=== PATIENT | male | born 1970 | race Hispanic/Latino ===

== ENCOUNTER 2019-12-08 10:20 | Emergency (ER) | payer SELFPAY | END 2019-12-08 11:26 | disposition home or self-care (01) | LOC: EDH 10:20 | DX: Z48.817 Encounter for surgical aftercare following surgery on the skin and subcutaneous tissue (principal); E11.9 Type 2 diabetes mellitus without complications; I10 Essential (primary) hypertension; Z87.891 Personal history of nicotine dependence; Z98.890 Other specified postprocedural states | CPT/HCPCS: 99281 ==

== ENCOUNTER 2020-06-20 19:22 | Inpatient (IN) | payer OTHER ==
[~2020-06-20] VITALS: Ht 172.7 cm; Wt 90.0 kg
[2020-06-20] MEDS: INSULIN HUMULIN R 100 UNIT/ML 3ML SQ SCH
[2020-06-20] MEDS ORDERED: ONDANSETRON HCL 4 MG/2 ML VIAL ONE (20:26)
[2020-06-20] MEDS ORDERED: ASPIRIN 325 MG TABLET ONE (20:26)
[2020-06-20 20:27] LABS: BASOPHILS % (AUTO) 0.3 % (0.0-5.0); EOSINOPHILS % (AUTO) 0.3 % (0.0-8.0); HEMATOCRIT 35.1 % (42-54); LYMPHOCYTES % (AUTO) 22.8 % (21.0-51.0); MEAN CORPUSCULAR HEMOGLOBIN 28.2 pg (27.0-33.0); MEAN CORPUSCULAR HGB CONC 33.6 g/dL (32.0-36.0); MEAN CORPUSCULAR VOLUME 83.8 fL (79-99); MONOCYTES % (AUTO) 8.6 % (3.0-13.0); NEUTROPHILS % (AUTO) 67.7 % (40.0-77.0); PLATELET COUNT (AUTO) 246 K/uL (130-400); RED BLOOD CELL COUNT(AUTO) 4.19 MIL/uL (4.50-6.20); RED CELL DISTRIBUTION WIDTH 13.6 % (11.0-15.5); WHITE BLOOD COUNT (AUTO) 11.6 K/uL (4.8-10.8)
[2020-06-20 20:37] LABS: INR 1.02 (0.85-1.15); PROTHROMBIN TIME 10.9 SEC (9.6-11.6)
[2020-06-20 20:38] LABS: PARTIAL THROMBOPLASTIN TIME 26.7 SEC (26.3-35.5)
[2020-06-20 20:55] LABS: B-TYPE NATRIURETIC PEPTIDE 44 pg/mL (0-100); POTASSIUM 3.6 mmol/L (3.5-5.1)
[2020-06-20 20:59] LABS: ALBUMIN 3.2 g/dL (3.5-5.0); BILIRUBIN,TOTAL 0.4 mg/dL (0.2-1.0); TOTAL PROTEIN, SERUM 7.9 g/dL (6.0-8.3)
[2020-06-20 21:09] LABS: APPEARANCE,URINE Clear (CLEAR); BILIRUBIN,URINE Negative (NEGATIVE); COLOR,URINE Dark Yellow (YELLOW); GLUCOSE, URINE (UA) 250 mg/dL (NEGATIVE); KETONES,URINE 15 mg/dL (NEGATIVE); LEUKOCYTE ESTERASE ,URINE Trace (NEGATIVE); NITRATE,URINE Negative (NEGATIVE); OCCULT BLOOD,URINE Negative (NEGATIVE); PROTEIN,URINE POS 2+ mg/dL (NEGATIVE)
[2020-06-20 21:19] LABS: BACTERIA,URINE Rare /HPF (None Seen); HYALINE CASTS, URINE 0-1 /LPF (0-1 /LPF); RBC,URINE 0-1 /HPF (0-1); SQUAMOUS EPITHELIAL CELL,UR Rare /HPF (0-2); WBC,URINE 0-1 /HPF (0-1)
[2020-06-20] MEDS ORDERED: GLUCAGON 1MG KIT 1 MG ML IM PRN (21:45)
[2020-06-20] MEDS ORDERED: DEXTROSE 50%-WATER 50 ML DISP.SYRIN IV PRN (21:45)
[2020-06-20 22:18] LABS: HEMOGLOBIN A1C 8.7 % (4.0-6.0)
[2020-06-20] MEDS ORDERED: NITROGLYCERIN 0.4 MG SL TAB SL PRN (22:45)
[2020-06-20] MEDS ORDERED: ACETAMINOPHEN 325 MG TAB PO PRN ×2 (22:45)
[2020-06-20] MEDS: SODIUM CHLORIDE 0.9% 1000ML 1,000 ML IV SCH (22:45)
[2020-06-20] MEDS ORDERED: ONDANSETRON HCL 4 MG/2 ML VIAL IV PRN (22:45)
[2020-06-20] MEDS ORDERED: SODIUM CHLORIDE 0.9% 1000ML 1,000 ML IV ONE (22:45)
[2020-06-20] MEDS ORDERED: DIPHENHYDRAMINE HCL 25 MG CAPSULE PO PRN (22:45)
[2020-06-20 23:05] LABS: AMPHET/METH SCREEN,URINE NEGATIVE (NEGATIVE); BARBITURATE SCREEN, URINE NEGATIVE (NEGATIVE); BENZODIAZEPINES SCREEN,URINE NEGATIVE (NEGATIVE); CANNABINOID SCREEN,URINE NEGATIVE (NEGATIVE); COCAINE SCREEN,URINE NEGATIVE (NEGATIVE); OPIATE SCREEN,URINE NEGATIVE (NEGATIVE); PHENCYCLIDINE SCREEN,URINE NEGATIVE (NEGATIVE)
[2020-06-20] MEDS ORDERED: SODIUM CHLORIDE 0.9% 1000ML 2,000 ML IV ONE (23:18)
[2020-06-20] MEDS ORDERED: KETOROLAC TROMETHAMINE 60 MG/2 ML VIAL ONE (23:26)
[2020-06-21 00:42] LABS: CREATINE KINASE, TOTAL 73 U/L (21-232); MYOGLOBIN 95 ng/mL (10-92); TROPONIN I < 0.04 ng/mL (0.00-0.06)
[2020-06-21 06:16] LABS: HEMATOCRIT 33.1 % (42-54); MEAN CORPUSCULAR HEMOGLOBIN 28.2 pg (27.0-33.0); MEAN CORPUSCULAR HGB CONC 33.5 g/dL (32.0-36.0); MEAN CORPUSCULAR VOLUME 84.2 fL (79-99); PLATELET COUNT (AUTO) 208 K/uL (130-400); RED BLOOD CELL COUNT(AUTO) 3.93 MIL/uL (4.50-6.20); RED CELL DISTRIBUTION WIDTH 13.6 % (11.0-15.5)
[2020-06-21 06:47] LABS: ALANINE AMINOTRANSFERASE 23 U/L (12-78); ALBUMIN 2.7 g/dL (3.5-5.0); ASPARTATE AMINOTRANSFERASE 16 U/L (10-37); BILIRUBIN,TOTAL 0.3 mg/dL (0.2-1.0); CARBON DIOXIDE 23 mmol/L (21-32); CHLORIDE 102 mmol/L (101-111); CHOLESTEROL 105 mg/dL (<200); CREATINE KINASE, TOTAL 55 U/L (21-232); GLOMERULAR FILTR. RATE CALC 84 mL/min (>60); GLUCOSE,RANDOM 142 mg/dL (70-105); HDL CHOLESTEROL 39 mg/dL (29-71); LDL DIRECT 56 mg/dL (0-99); MYOGLOBIN 72 ng/mL (10-92); POTASSIUM 3.4 mmol/L (3.5-5.1); SODIUM SERUM 135 mmol/L (136-145); TOTAL PROTEIN, SERUM 6.8 g/dL (6.0-8.3); TRIGLYCERIDES 76 mg/dL (30-200); TROPONIN I < 0.04 ng/mL (0.00-0.06); UREA NITROGEN, BLOOD 28 mg/dL (7-18)
[2020-06-21 07:24] LABS: EOSINOPHILS % (MANUAL) 1 % (1-6); LYMPHOCYTES % (MANUAL) 38 % (22-44); MAN.DIFF COMMENT-IMPRESSION MANUAL DIFFERENTIAL; MONOCYTES % (MANUAL) 9 % (2-9); PLATELET MORPHOLOGY COMMENT ADEQUATE; SEGMENTED NEUTROPHILS % 52 % (40-70)
[2020-06-21] MEDS: INSULIN HUMULIN R 100 UNIT/ML 3ML SQ SCH ×3 (07:30→16:30)
[2020-06-21] MEDS ORDERED: FAMOTIDINE 20MG TAB 20 MG TAB ONE ×2 (07:55→21:00)
[2020-06-21] MEDS ORDERED: ASPIRIN 325 MG TABLET ONE (07:56)
[2020-06-21] MEDS ORDERED: ENOXAPARIN SODIUM 30 MG/0.3 ML SQ ONE (07:56)
[2020-06-21] MEDS ORDERED: METOPROLOL TARTRATE 25 MG TAB ONE ×2 (07:57→21:00)
[2020-06-21] MEDS: SODIUM CHLORIDE 0.9% 1000ML 1,000 ML IV SCH ×2 (08:45→18:45)
[2020-06-21] MEDS: METOPROLOL TARTRATE 25 MG TAB PO SCH ×2 (09:00→21:00)
[2020-06-21] MEDS: ASPIRIN 325 MG TABLET PO SCH (09:00)
[2020-06-21] MEDS: ENOXAPARIN SODIUM 30 MG/0.3 ML SQ SCH (09:00)
[2020-06-21] MEDS: FAMOTIDINE 20MG TAB 20 MG TAB PO SCH (09:00)
[2020-06-21] MEDS ORDERED: POTASSIUM CHLORIDE 20 MEQ ERTAB PO PRN (09:45)
[2020-06-21] MEDS ORDERED: POTASSIUM CHLORIDE 10% ELIXIR 20 MEQ/15 ML UDCUP PO PRN (09:45)
[2020-06-21] MEDS ORDERED: LIDOCAINE HCL-MPF 1% 2ML VIAL IV PRN (09:45)
[2020-06-21] MEDS ORDERED: POTASSIUM CHLORIDE 20MEQ/100ML 100 ML IV PRN (09:45)
[2020-06-21] MEDS ORDERED: SODIUM CHLORIDE 0.9% 1000ML 1,000 ML IV ONE (09:48)
[2020-06-21] MEDS ORDERED: KETOROLAC TROMETHAMINE 30MG/ML ONE (10:13)
[2020-06-21 13:03] LABS: CREATINE KINASE, TOTAL 48 U/L (21-232); MYOGLOBIN 67 ng/mL (10-92); TROPONIN I < 0.04 ng/mL (0.00-0.06)
[2020-06-21] MEDS: ATORVASTATIN CALCIUM 40 MG TABLET PO SCH (21:00)
[2020-06-21 23:51] VITALS: BP 139/73
[2020-06-22] MEDS: MORPHINE SULFATE 4 MG/1ML SYG IV PRN ×4 (00:12→20:51)
--- NOTE | 2020-06-22 00:15 | NUR ---
ADMIT PT ADMITTED TO ROOM 312, AAOX3. ADMISSION CARE DONE. ADMISSION DATA BASE COMPLETED. IVF OF NS FROM ER CONTINUED REGULATED AT 100CC/HR. ORIENTED TO ROOM AND UNIT. IN FOR MORE CARE AND MANAGEMENT.
[2020-06-22] MEDS: FAMOTIDINE 20MG TAB 20 MG TAB PO SCH ×3 (00:29→20:45)
--- NOTE | 2020-06-22 01:30 | NUR ---
RE-ASSESS PT RESTING IN BED. NO CONCERNS VERBALIZED. NO DISTRESS NOTED. KEPT RESTED AND COMFORTABLE. ENCOURAGED TO SLEEP. WILL CONTINUE TO MONITOR.
[2020-06-22 04:25] VITALS: BP 118/70
[2020-06-22] MEDS: SODIUM CHLORIDE 0.9% 1000ML 1,000 ML IV SCH ×4 (04:43→21:56)
[2020-06-22 04:58] LABS: BASOPHILS % (AUTO) 0.3 % (0.0-5.0); EOSINOPHILS % (AUTO) 1.6 % (0.0-8.0); HEMATOCRIT 29.7 % (42-54); MEAN CORPUSCULAR HEMOGLOBIN 28.4 pg (27.0-33.0); MEAN CORPUSCULAR VOLUME 83.4 fL (79-99); MONOCYTES % (AUTO) 12.8 % (3.0-13.0); NEUTROPHILS % (AUTO) 41.1 % (40.0-77.0); PLATELET COUNT (AUTO) 220 K/uL (130-400); RED BLOOD CELL COUNT(AUTO) 3.56 MIL/uL (4.50-6.20); RED CELL DISTRIBUTION WIDTH 13.3 % (11.0-15.5); WHITE BLOOD COUNT (AUTO) 8.9 K/uL (4.8-10.8)
[2020-06-22 05:16] LABS: CREATININE 0.5 mg/dL (0.5-1.5); POTASSIUM 3.7 mmol/L (3.5-5.1)
--- NOTE | 2020-06-22 06:30 | NUR ---
PAIN PT CALLS FOR PAIN MEDICATION. HAYDEN RIGGINS, GAVE MORPHINE FOR PAINS. KEPT RESTED AND COMFORTABLE IN BED. WILL RE-ASSESS PT.
[2020-06-22] MEDS: INSULIN HUMULIN R 100 UNIT/ML 3ML SQ SCH ×4 (06:40→21:54)
[2020-06-22 07:30] VITALS: BP 129/60
[2020-06-22] MEDS: ASPIRIN 325 MG TABLET PO SCH (08:46)
[2020-06-22] MEDS: METOPROLOL TARTRATE 25 MG TAB PO SCH ×2 (08:46→20:45)
[2020-06-22] MEDS: ENOXAPARIN SODIUM 30 MG/0.3 ML SQ SCH (08:47)
--- NOTE | 2020-06-22 08:50 | NUR ---
ASSESSMENT PT IS AA/OX3 C/O PRESSURE TO MID CHEST AREA, NOT RADIATING ANYWHERE, 01/13 NITRO 0.4MG SL PER PROTOCOL GIVEN. WILL CALL DR MIRANDA
--- NOTE | 2020-06-22 08:55 | NUR ---
2ND NITRO SL PT STATES PRESSURE IS 6/10 2ND SL 0.4 MG GIVEN
--- NOTE | 2020-06-22 08:59 | NUR ---
DR. PAZ ZAMBRANO
--- NOTE | 2020-06-22 09:08 | NUR ---
DR. DONIS SPOKE WITH DR. DONIS , CARDIAC MAKERS NEG, PER NO NITRO TO BE GIVEN ANYMORE. DR. DONIS SPOKE TO DR. DONIS AND IS AWARE THAT PT WAS C/O WAS CP TO MID CHEST 01/13, NITRO GIVEN X [address] DONIS NOT TO GIVE NO MORE NITRO. CARDIAC MARKERS NEG. PT VS STABLE B/P 115/59 HR 89 SPO2 97
[2020-06-22 11:00] VITALS: BP 127/64
[2020-06-22] MEDS ORDERED: IOHEXOL-350 75 ML VIAL IV ONE (11:41)
[2020-06-22 14:07] LABS: FERRITIN 98 ng/mL (30-400); IRON, SERUM 77 mcg/dL (65-175)
--- NOTE | 2020-06-22 15:26 | NUR ---
CHASE NOTE/IA METS WITH PATIENT AT BEDSIDE. PER PATIENT, LIVES WITH 2 FRIENDS, INDEPENDENT WITH ADLS, NO USE OF HOME HEALTH OR PROVIDER SERVICES, HAS USE OF WALKER AND WHEELCHAIR, AND FEELS SAFE TO RETURN HOME ONCE DISCHARGED. Addendum: 06/22/20 at 1527 by JAMARI MANZANARES RN CM Amended: Links added.
[2020-06-22 16:00] VITALS: BP 147/72
[2020-06-22 19:35] VITALS: BP 103/57
[2020-06-22] MEDS: ATORVASTATIN CALCIUM 40 MG TABLET PO SCH (20:45)
--- NOTE | 2020-06-22 20:45 | NUR ---
MEDS SHIFT ASSESSMENT DONE, PLEASE REFER TO CHART. PT COMPLAINTS OF LLE PAINS. DUE MEDS ADMINISTERED, TOLERATED WELL. MORPHINE GIVEN FOR PAIN. KEPT COMFORTABLE IN BED. CALL LIGHT WITHIN REACH. WILL RE-ASSESS PT. Addendum: 06/23/20 at 0233 by TYLER DOAN RN RN Amended: Links added.
[2020-06-23] VITALS: BP 124/80
--- NOTE | 2020-06-23 01:00 | NUR ---
PAIN PT CALLS FOR PAIN MEDICATION. HAYDEN RIGGINS, MEDICATED PT WITH MORPHINE IV. KEPT COMFORTABLE IN BED. CALL LIGHT WITHIN REACH. WILL MONITOR PT.
[2020-06-23] MEDS: MORPHINE SULFATE 4 MG/1ML SYG IV PRN ×6 (01:20→21:53)
[2020-06-23 03:36] LABS: BASOPHILS % (AUTO) 0.7 % (0.0-5.0); HEMATOCRIT 32.1 % (42-54); LYMPHOCYTES % (AUTO) 46.4 % (21.0-51.0); MEAN CORPUSCULAR HGB CONC 33.3 g/dL (32.0-36.0); MONOCYTES % (AUTO) 12.1 % (3.0-13.0); NEUTROPHILS % (AUTO) 38.3 % (40.0-77.0); PLATELET COUNT (AUTO) 218 K/uL (130-400); RED BLOOD CELL COUNT(AUTO) 3.82 MIL/uL (4.50-6.20); RED CELL DISTRIBUTION WIDTH 13.6 % (11.0-15.5); WHITE BLOOD COUNT (AUTO) 7.6 K/uL (4.8-10.8)
[2020-06-23 03:49] LABS: CREATININE 0.8 mg/dL (0.5-1.5)
[2020-06-23 04:00] VITALS: BP 121/79
--- NOTE | 2020-06-23 05:14 | NUR ---
PAIN PT CALLS FOR PAIN MEDICATION. MORPHINE IV GIVEN BY HAYDEN RIGGINS. KEPT COMFORTABLE IN BED. CALL LIGHT WITHIN REACH. WILL RE-ASSESS PT.
[2020-06-23] MEDS: INSULIN HUMULIN R 100 UNIT/ML 3ML SQ SCH ×4 (07:30→21:53)
[2020-06-23] MEDS: METOPROLOL TARTRATE 25 MG TAB PO SCH ×2 (09:29→21:51)
[2020-06-23] MEDS: ISOSORBIDE MONO 30MG TAB SR PO SCH (09:32)
[2020-06-23] MEDS: FAMOTIDINE 20MG TAB 20 MG TAB PO SCH (09:32)
[2020-06-23] MEDS: ENOXAPARIN SODIUM 30 MG/0.3 ML SQ SCH (09:32)
[2020-06-23 10:08] VITALS: BP_SYST 131; BP_SYST 152; BP_DIAS 69
[2020-06-23] MEDS ORDERED: PHARMACY COMMUNICATION MISC SCH (10:45)
--- NOTE | 2020-06-23 12:22 | NUR ---
[facility] team. See Inpatient Wound Assessment. Assessment and recommendations discussed with primary nurse. Education provided. Addendum: 06/23/20 at 1225 by CARMELA LIRA LVN Amended: Links added.
[2020-06-23 12:39] VITALS: BP 111/86
[2020-06-23 17:46] VITALS: BP 114/71
[2020-06-23] MEDS: ASPIRIN 81MG TAB.CHEW PO SCH (17:51)
[2020-06-23] MEDS ORDERED: PEG 3350/NA SULF,BICARB,CL/KCL 4000 ML SOLN PO STA (17:59)
--- NOTE | 2020-06-23 19:31 | NUR ---
NOTIFIED DR MANZANARES REGARDING PAITENT REFUSING FOR BOTH EGD AND COLONOSCOPY . PER MD MAYA AND FOLLOW UP OUTPT IN 1 WEEK ONCE DISCHARGED
[2020-06-23 20:12] VITALS: BP 114/71
[2020-06-23] MEDS ORDERED: MAG HYDROX/AL HYDROX/SIMETH ES 30 ML SUSP UDCUP PO SCH (20:15)
[2020-06-23] MEDS ORDERED: MAG HYDROX/AL HYDROX/SIMETH ES 30 ML SUSP UDCUP ONE (21:48)
[2020-06-23] MEDS: ATORVASTATIN CALCIUM 40 MG TABLET PO SCH (21:51)
[2020-06-23] MEDS: PANTOPRAZOLE SODIUM 40 MG TABLET.DR PO SCH (21:52)
[2020-06-24] VITALS (7 sets, daily range): BP systolic 93–143; BP diastolic 57–84
[2020-06-24] MEDS: MORPHINE SULFATE 4 MG/1ML SYG IV PRN ×5 (01:37→23:46)
[2020-06-24] MEDS: INSULIN HUMULIN R 100 UNIT/ML 3ML SQ SCH ×4 (07:30→21:00)
[2020-06-24 08:10] LABS: BASOPHILS % (AUTO) 0.6 % (0.0-5.0); EOSINOPHILS % (AUTO) 3.2 % (0.0-8.0); HEMATOCRIT 33.6 % (42-54); LYMPHOCYTES % (AUTO) 47.9 % (21.0-51.0); MEAN CORPUSCULAR HEMOGLOBIN 28.5 pg (27.0-33.0); MEAN CORPUSCULAR HGB CONC 33.3 g/dL (32.0-36.0); MEAN CORPUSCULAR VOLUME 85.5 fL (79-99); MONOCYTES % (AUTO) 9.4 % (3.0-13.0); NEUTROPHILS % (AUTO) 38.5 % (40.0-77.0); PLATELET COUNT (AUTO) 245 K/uL (130-400); RED BLOOD CELL COUNT(AUTO) 3.93 MIL/uL (4.50-6.20); RED CELL DISTRIBUTION WIDTH 13.6 % (11.0-15.5); WHITE BLOOD COUNT (AUTO) 7.9 K/uL (4.8-10.8)
[2020-06-24 08:28] LABS: CREATININE 0.7 mg/dL (0.5-1.5); POTASSIUM 4.1 mmol/L (3.5-5.1)
[2020-06-24] MEDS: ASPIRIN 81MG TAB.CHEW PO SCH (09:16)
[2020-06-24] MEDS: PANTOPRAZOLE SODIUM 40 MG TABLET.DR PO SCH ×2 (09:16→19:53)
[2020-06-24] MEDS: ENOXAPARIN SODIUM 30 MG/0.3 ML SQ SCH (09:17)
[2020-06-24] MEDS: METOPROLOL TARTRATE 25 MG TAB PO SCH ×2 (09:17→21:00)
[2020-06-24] MEDS: ISOSORBIDE MONO 30MG TAB SR PO SCH (09:17)
--- NOTE | 2020-06-24 11:34 | NUR ---
FAXED SEVERAL TIMES FOR 2 DAYS TO [facility] FOR RECORDS . CALLED AGAIN TODAY ,WITH NO ANSWER . NOTIFIED .
[2020-06-24] MEDS: ATORVASTATIN CALCIUM 40 MG TABLET PO SCH (19:53)
[2020-06-25 00:24] VITALS: BP 129/69
[2020-06-25 04:24] VITALS: BP 127/77
[2020-06-25 05:51] LABS: BASOPHILS % (AUTO) 0.5 % (0.0-5.0); EOSINOPHILS % (AUTO) 3.4 % (0.0-8.0); HEMATOCRIT 33.4 % (42-54); LYMPHOCYTES % (AUTO) 46.6 % (21.0-51.0); MEAN CORPUSCULAR HEMOGLOBIN 27.9 pg (27.0-33.0); MEAN CORPUSCULAR HGB CONC 33.2 g/dL (32.0-36.0); MEAN CORPUSCULAR VOLUME 83.9 fL (79-99); MONOCYTES % (AUTO) 9.2 % (3.0-13.0); NEUTROPHILS % (AUTO) 40.1 % (40.0-77.0); PLATELET COUNT (AUTO) 254 K/uL (130-400); RED BLOOD CELL COUNT(AUTO) 3.98 MIL/uL (4.50-6.20); RED CELL DISTRIBUTION WIDTH 13.5 % (11.0-15.5); WHITE BLOOD COUNT (AUTO) 8.2 K/uL (4.8-10.8)
[2020-06-25] MEDS: INSULIN HUMULIN R 100 UNIT/ML 3ML SQ SCH ×4 (06:10→21:57)
[2020-06-25 06:33] LABS: CREATININE 0.9 mg/dL (0.5-1.5)
[2020-06-25 08:00] VITALS: BP 126/70
[2020-06-25] MEDS: ENOXAPARIN SODIUM 30 MG/0.3 ML SQ SCH (09:39)
[2020-06-25] MEDS: PANTOPRAZOLE SODIUM 40 MG TABLET.DR PO SCH ×2 (09:39→20:14)
[2020-06-25] MEDS: METOPROLOL TARTRATE 25 MG TAB PO SCH ×2 (09:39→20:14)
[2020-06-25] MEDS: ISOSORBIDE MONO 30MG TAB SR PO SCH (09:39)
[2020-06-25] MEDS: ASPIRIN 81MG TAB.CHEW PO SCH (09:39)
[2020-06-25] MEDS: MORPHINE SULFATE 4 MG/1ML SYG IV PRN ×4 (09:40→20:16)
[2020-06-25 11:00] VITALS: BP 101/65
[2020-06-25] MEDS ORDERED: GABAPENTIN 100 MG CAPSULE ONE (11:30)
[2020-06-25] MEDS: GABAPENTIN 100 MG CAPSULE PO SCH ×2 (12:48→20:14)
[2020-06-25] MEDS ORDERED: ISOSORBIDE MONO 30MG TAB SR PO SCH (15:30)
[2020-06-25 16:00] VITALS: BP 97/55
[2020-06-25 20:00] VITALS: BP 118/72
[2020-06-25] MEDS: ATORVASTATIN CALCIUM 40 MG TABLET PO SCH (20:14)
[2020-06-26] VITALS (7 sets, daily range): BP systolic 107–137; BP diastolic 60–81
[2020-06-26] MEDS: MORPHINE SULFATE 4 MG/1ML SYG IV PRN ×4 (00:28→17:05)
--- NOTE | 2020-06-26 00:28 | NUR ---
PHANTOM LIMB PAIN Pt c/o pain to left bka stump,medicated with Morphine as requested.
[2020-06-26 05:45] LABS: BASOPHILS % (AUTO) 0.5 % (0.0-5.0); EOSINOPHILS % (AUTO) 3.7 % (0.0-8.0); HEMATOCRIT 32.6 % (42-54); LYMPHOCYTES % (AUTO) 45.4 % (21.0-51.0); MEAN CORPUSCULAR HEMOGLOBIN 28.5 pg (27.0-33.0); MEAN CORPUSCULAR HGB CONC 33.4 g/dL (32.0-36.0); MEAN CORPUSCULAR VOLUME 85.1 fL (79-99); MONOCYTES % (AUTO) 10.5 % (3.0-13.0); NEUTROPHILS % (AUTO) 39.7 % (40.0-77.0); PLATELET COUNT (AUTO) 284 K/uL (130-400); RED BLOOD CELL COUNT(AUTO) 3.83 MIL/uL (4.50-6.20); RED CELL DISTRIBUTION WIDTH 13.8 % (11.0-15.5); WHITE BLOOD COUNT (AUTO) 8.6 K/uL (4.8-10.8)
[2020-06-26 06:03] LABS: CREATININE 0.9 mg/dL (0.5-1.5); MAGNESIUM 1.9 mg/dL (1.80-2.40); POTASSIUM 4.3 mmol/L (3.5-5.1)
[2020-06-26] MEDS: INSULIN HUMULIN R 100 UNIT/ML 3ML SQ SCH ×4 (06:23→20:17)
--- NOTE | 2020-06-26 06:44 | NUR ---
MORPHINE Pt wants his Morphine every 4 hrs,states he hurts a lot from his left stump.
[2020-06-26] MEDS: ASPIRIN 81MG TAB.CHEW PO SCH (09:31)
[2020-06-26] MEDS: METOPROLOL TARTRATE 25 MG TAB PO SCH ×2 (09:32→20:12)
[2020-06-26] MEDS: ISOSORBIDE MONO 30MG TAB SR PO SCH (09:32)
[2020-06-26] MEDS: GABAPENTIN 100 MG CAPSULE PO SCH ×2 (09:32→20:13)
[2020-06-26] MEDS: ENOXAPARIN SODIUM 30 MG/0.3 ML SQ SCH (09:34)
[2020-06-26] MEDS: PANTOPRAZOLE SODIUM 40 MG TABLET.DR PO SCH ×2 (09:36→20:12)
--- NOTE | 2020-06-26 20:00 | NUR ---
MD DR DONIS IN TO SEE PT. STATED HE IS SINGING OFF THE CASE. PLEASE REFER TO MD DICTATION.
[2020-06-26] MEDS: ATORVASTATIN CALCIUM 40 MG TABLET PO SCH (20:12)
--- NOTE | 2020-06-26 20:15 | NUR ---
MEDS SHIFT ASSESSMENT DONE, PLEASE REFER TO CHART. DUE MEDS ADMINISTERED, TOLERATED WELL. CALL LIGHT WITHIN REACH. WILL MONITOR PT. Addendum: 06/26/20 at 2255 by TYLER DOAN RN RN Amended: Links added.
[2020-06-26] MEDS ORDERED: MORPHINE SULFATE 4 MG/1ML SYG ONE (21:07)
[2020-06-27] MEDS: MORPHINE SULFATE 4 MG/1ML SYG IV PRN ×5 (01:12→21:30)
--- NOTE | 2020-06-27 01:12 | NUR ---
PAIN PT CALLS FOR PAIN MEDICATION. CLAIMS OF PAINS TO LLE. MEDICATED WITH MORPHINE IV. KEPT RESTED AND COMFORTABLE IN BED. CALL LIGHT WITHIN REACH. WILL RE-ASSESS PT.
[2020-06-27 04:00] VITALS: BP 118/84
[2020-06-27] MEDS: INSULIN HUMULIN R 100 UNIT/ML 3ML SQ SCH ×4 (06:17→20:33)
[2020-06-27 07:57] VITALS: BP 112/57
[2020-06-27] MEDS: GABAPENTIN 100 MG CAPSULE PO SCH ×2 (09:30→20:32)
[2020-06-27] MEDS: ASPIRIN 81MG TAB.CHEW PO SCH (09:30)
[2020-06-27] MEDS: PANTOPRAZOLE SODIUM 40 MG TABLET.DR PO SCH ×2 (09:30→20:32)
[2020-06-27] MEDS: ISOSORBIDE MONO 30MG TAB SR PO SCH (09:31)
[2020-06-27] MEDS: METOPROLOL TARTRATE 25 MG TAB PO SCH ×2 (09:32→20:32)
[2020-06-27] MEDS: ENOXAPARIN SODIUM 30 MG/0.3 ML SQ SCH (09:33)
[2020-06-27 11:34] VITALS: BP 117/65
--- NOTE | 2020-06-27 15:41 | NUR ---
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 As per EMR, staff unable to obtain medical records from [facility] Pt is currently on a HH diet with a PO consumption of 75-100% As per EMR pt is a poor historian. Pt's BMI of 30.2 indicates overweight. Pt's IBW is of 145 lbs post [address] RECOMMENDATION: Consider adding a 75 gm CC diet modifier to current diet order. Monitor for nausea/vomiting Monitor PO intake When medically feasible, pt may benefit from MVI. Contact RD as nutritional concerns arise, thank you. LABS: A1C 8.7, BG 208, ALB 2.7, MG 1.9, IRON 77, TOT CA 8.9 LBM: 06/26/20 Addendum: 06/27/20 at [address] Amended: Links added.
[2020-06-27 16:13] VITALS: BP 116/76
[2020-06-27 19:30] VITALS: BP 136/83
--- NOTE | 2020-06-27 20:00 | NUR ---
REFUSED PT REFUSING TELE MONITOR AT THIS TIME. SIGNED REFUSAL OF TREATMENT FORM, PLACED IN CHART. TELE PACK SENT BACK TO MANAGEMENT MANAGER.
[2020-06-27] MEDS: ATORVASTATIN CALCIUM 40 MG TABLET PO SCH (20:32)
--- NOTE | 2020-06-27 20:35 | NUR ---
MEDS SHIFT ASSESSMENT DONE, PLEASE REFER TO CHART. DUE MEDS ADMINISTERED, TOLERATED WELL. CALL LIGHT WITHIN REACH. WILL MONITOR PT. Addendum: 06/28/20 at 0439 by TYLER DOAN RN RN Amended: Links added.
--- NOTE | 2020-06-27 21:30 | NUR ---
PAIN PT CALLS FOR PAIN MEDICATION, CLAIMS OF LLE PAINS. MEDICATED WITH MORPHINE IV. KEPT COMFORTABLE IN BED. WILL RE-ASSESS PT. PT ASKS FOR SNACKS. PCP PROVIDED PT WITH SANDWICH AND COFFEE.
[2020-06-28] VITALS: BP 114/61
[2020-06-28] MEDS: MORPHINE SULFATE 4 MG/1ML SYG IV PRN ×3 (01:20→09:02)
--- NOTE | 2020-06-28 01:20 | NUR ---
PAIN PT CALLS FOR MORPHINE DOSE. REFUSED PO PAIN PILLS, CLAIMS IT DOES NOT WORK. MEDICATED PT. KEPT RESTED AND COMFORTABLE. WILL RE-ASSESS PT.
[2020-06-28 04:00] VITALS: BP 122/73
--- NOTE | 2020-06-28 05:27 | NUR ---
PAIN PT COMPLAINTS OF PAINS TO LLE. CALLS FOR MORPHINE DOSE. MEDICATED PT AND SALINE LOCKED PIV. KEPT COMFORTABLE IN BED. WILL RE-ASSESS PT. CALL LIGHT WITHIN REACH. RE-ITERATED FALL PRECAUTIONS.
[2020-06-28] MEDS: INSULIN HUMULIN R 100 UNIT/ML 3ML SQ SCH (05:53)
[2020-06-28 06:40] LABS: BASOPHILS % (AUTO) 0.5 % (0.0-5.0); EOSINOPHILS % (AUTO) 4.8 % (0.0-8.0); HEMATOCRIT 33.5 % (42-54); LYMPHOCYTES % (AUTO) 42.1 % (21.0-51.0); MEAN CORPUSCULAR HEMOGLOBIN 28.1 pg (27.0-33.0); MEAN CORPUSCULAR HGB CONC 33.1 g/dL (32.0-36.0); MEAN CORPUSCULAR VOLUME 84.8 fL (79-99); MONOCYTES % (AUTO) 9.6 % (3.0-13.0); NEUTROPHILS % (AUTO) 42.6 % (40.0-77.0); PLATELET COUNT (AUTO) 275 K/uL (130-400); RED BLOOD CELL COUNT(AUTO) 3.95 MIL/uL (4.50-6.20); RED CELL DISTRIBUTION WIDTH 13.5 % (11.0-15.5); WHITE BLOOD COUNT (AUTO) 8.5 K/uL (4.8-10.8)
[2020-06-28 06:52] LABS: CREATININE 0.9 mg/dL (0.5-1.5)
[2020-06-28 08:00] VITALS: BP 136/76
[2020-06-28] MEDS: ASPIRIN 81MG TAB.CHEW PO SCH (09:02)
[2020-06-28] MEDS: ISOSORBIDE MONO 30MG TAB SR PO SCH (09:03)
[2020-06-28] MEDS: GABAPENTIN 100 MG CAPSULE PO SCH (09:03)
[2020-06-28] MEDS: PANTOPRAZOLE SODIUM 40 MG TABLET.DR PO SCH (09:03)
[2020-06-28] MEDS: METOPROLOL TARTRATE 25 MG TAB PO SCH (09:03)
[2020-06-28] MEDS: ENOXAPARIN SODIUM 30 MG/0.3 ML SQ SCH (09:04)
[2020-06-28] MEDS ORDERED: PANT40TA PO (09:28)
[2020-06-28] MEDS ORDERED: Isosorbide Mono 30MG Tab Sr PO (09:28)
--- NOTE | 2020-06-28 10:45 | NUR ---
DISCHARGE PATIENT GIVEN DISCHARGE INSTRUCTIONS VIA TEACH BACK. 20G PIV TO RAC DISCONTINUED, TIP INTACT. PATIENT SIGNED DISCHARGED AND STATED HE DID NOT NEED TO BE EXPLAINED ANYTHING REGARDING MEDICATIONS OR DOCTOR APPOINTMENTS. HE WAS GOING TO [facility] SOON HE LEAVES THE FACILITY. PATIENT HAS HIS OWN WHEELCHAIR AND WILL TAKE THE [facility] TO [place] [facility]. PATIENT STABLE AT THIS TIME. PATIENT WHEELED TO [facility] FOR DISCHARGE BY [facility] RUSH[facility].
== END 2020-06-28 11:00 | disposition home or self-care (01) | DRG 313 ==
LOC: EDH 19:22 → OBSVTOIN 19:23 → EDHIP 19:23 → 3BH 06-21 22:37
PROVIDERS: ADMIT Internal Medicine; ATTEND Internal Medicine
DX: R07.9 Chest pain, unspecified (principal); K92.2 Gastrointestinal hemorrhage, unspecified; I25.10 Atherosclerotic heart disease of native coronary artery without angina pectoris; E11.51 Type 2 diabetes mellitus with diabetic peripheral angiopathy without gangrene; I10 Essential (primary) hypertension; Z20.828 Contact with and (suspected) exposure to other viral communicable diseases; E78.5 Hyperlipidemia, unspecified; R19.5 Other fecal abnormalities; F17.210 Nicotine dependence, cigarettes, uncomplicated; D64.9 Anemia, unspecified; Z53.20 Procedure and treatment not carried out because of patient's decision for unspecified reasons; Z79.899 Other long term (current) drug therapy; Z89.512 Acquired absence of left leg below knee; Z89.411 Acquired absence of right great toe; Z84.89 Family history of other specified conditions; Z83.3 Family history of diabetes mellitus
CPT/HCPCS: 36415; 71045; 71275; 80048; 80053; 80061; 80305; 81001; 82270; 82550; 82728; 82948; 83036; 83540; 83690; 83735; 83874; 83880; 84484; 85025; 85610; 85730; 87046; 87426; 93005; 93306; 93356; 93970; G0378; J1650; J1815; J1885; J2270; J2405; J7030; Q9967; U0003

== ENCOUNTER 2020-07-29 16:21 | Inpatient (IN) | payer OTHER ==
[~2020-07-29] VITALS: Ht 172.7 cm; Wt 89.4 kg
[~2020-07-29 16:21] MED LIST: Isosorbide Mono 30MG Tab Sr PO; PANT40TA PO
[2020-07-29 16:46] LABS: BASOPHILS % (AUTO) 0.5 % (0.0-5.0); EOSINOPHILS % (AUTO) 0.8 % (0.0-8.0); HEMATOCRIT 40.6 % (42-54); LYMPHOCYTES % (AUTO) 37.9 % (21.0-51.0); MEAN CORPUSCULAR HEMOGLOBIN 28.8 pg (27.0-33.0); MEAN CORPUSCULAR HGB CONC 34.2 g/dL (32.0-36.0); MEAN CORPUSCULAR VOLUME 84.2 fL (79-99); MONOCYTES % (AUTO) 8.6 % (3.0-13.0); NEUTROPHILS % (AUTO) 51.8 % (40.0-77.0); PLATELET COUNT (AUTO) 219 K/uL (130-400); RED BLOOD CELL COUNT(AUTO) 4.82 MIL/uL (4.50-6.20); RED CELL DISTRIBUTION WIDTH 13.6 % (11.0-15.5); WHITE BLOOD COUNT (AUTO) 8.5 K/uL (4.8-10.8)
[2020-07-29 16:58] LABS: CREATININE 0.8 mg/dL (0.5-1.5); POTASSIUM 4.2 mmol/L (3.5-5.1)
[2020-07-29 17:00] LABS: INR 1.02 (0.85-1.15); PROTHROMBIN TIME 10.9 SEC (9.6-11.6)
[2020-07-29 17:01] LABS: PARTIAL THROMBOPLASTIN TIME 23.8 SEC (26.3-35.5)
[2020-07-29 17:02] LABS: ALBUMIN 3.2 g/dL (3.5-5.0); BILIRUBIN,TOTAL 0.4 mg/dL (0.2-1.0); TOTAL PROTEIN, SERUM 7.3 g/dL (6.0-8.3)
[2020-07-29] MEDS ORDERED: ENOXAPARIN SODIUM 60 MG/0.6 ML SQ ONE (17:04)
[2020-07-29] MEDS ORDERED: METOPROLOL TARTRATE 1 MG/ML 5ML VIAL IV ONE (17:04)
[2020-07-29] MEDS ORDERED: NITROGLYCERIN 1GM/1 INCH PACKET TD ONE (17:05)
[2020-07-29] MEDS ORDERED: MAG HYDROX/AL HYDROX/SIMETH ES 30 ML SUSP UDCUP PO PRN (20:45)
[2020-07-29] MEDS ORDERED: LACTULOSE 20 GM/30 ML UDCUP PO PRN (20:45)
[2020-07-29] MEDS ORDERED: DIPHENHYDRAMINE HCL 25 MG CAPSULE PO PRN (20:45)
[2020-07-29] MEDS ORDERED: ONDANSETRON HCL 4 MG/2 ML VIAL IV PRN (20:45)
[2020-07-29] MEDS ORDERED: ACETAMINOPHEN 325 MG TAB PO PRN ×2 (20:45)
[2020-07-29] MEDS ORDERED: DiphenhydrAMINE HCL 50 MG/ML VIAL IV PRN (20:45)
[2020-07-29] MEDS ORDERED: LACTATED RINGERS 1000ML 1,000 ML IV SCH ×2 (20:45→22:45)
[2020-07-29] MEDS ORDERED: MORPHINE SULFATE 2 MG/ML 1ML SYG IV PRN (20:45)
[2020-07-29] MEDS ORDERED: GUAIFENESIN-DM 200/20 MG 10 ML PO PRN (20:45)
[2020-07-29] MEDS ORDERED: NITROGLYCERIN 0.4 MG SL TAB SL PRN (20:45)
[2020-07-29] MEDS ORDERED: FAMOTIDINE 20MG TAB 20 MG TAB PO SCH (21:00)
[2020-07-29] MEDS: METOPROLOL TARTRATE 25 MG TAB PO SCH (21:00)
[2020-07-29] MEDS ORDERED: DiphenhydrAMINE HCL 50 MG/ML VIAL ONE (21:36)
[2020-07-29] MEDS ORDERED: FAMOTIDINE 20MG TAB 20 MG TAB ONE (21:36)
[2020-07-29] MEDS ORDERED: METOPROLOL TARTRATE 25 MG TAB ONE (21:36)
[2020-07-29] MEDS ORDERED: MORPHINE SULFATE 2 MG/ML 1ML SYG ONE (21:36)
[2020-07-29] MEDS ORDERED: LACTATED RINGERS 1000ML 1,000 ML IV ONE (21:37)
[2020-07-29 21:56] LABS: APPEARANCE,URINE Clear (CLEAR); BILIRUBIN,URINE Negative (NEGATIVE); COLOR,URINE Yellow (YELLOW); GLUCOSE, URINE (UA) 500 mg/dL (NEGATIVE); KETONES,URINE Negative (NEGATIVE); LEUKOCYTE ESTERASE ,URINE Negative (NEGATIVE); NITRATE,URINE Negative (NEGATIVE); OCCULT BLOOD,URINE Negative (NEGATIVE); PH,URINE 5.5 (5.0-8.0); PROTEIN,URINE POS 1+ mg/dL (NEGATIVE); UROBILINOGEN,URINE 0.2 mg/dL (0.2-1.0)
[2020-07-29 22:04] LABS: AMPHET/METH SCREEN,URINE NEGATIVE (NEGATIVE); BARBITURATE SCREEN, URINE NEGATIVE (NEGATIVE); BENZODIAZEPINES SCREEN,URINE NEGATIVE (NEGATIVE); CANNABINOID SCREEN,URINE NEGATIVE (NEGATIVE); COCAINE SCREEN,URINE NEGATIVE (NEGATIVE); OPIATE SCREEN,URINE NEGATIVE (NEGATIVE); PHENCYCLIDINE SCREEN,URINE NEGATIVE (NEGATIVE)
[2020-07-29 22:16] LABS: BACTERIA,URINE Rare /HPF (None Seen); MUCUS,URINE Few LPF (None Seen); RBC,URINE None Seen /HPF (0-1); WBC,URINE None Seen /HPF (0-1)
[2020-07-29] MEDS: ASPIRIN 325MG EC TAB 325 MG TABLET.DR PO SCH (22:45)
[2020-07-29] MEDS ORDERED: GLUCAGON 1MG KIT 1 MG ML IM PRN (23:00)
[2020-07-29] MEDS ORDERED: POTASSIUM CHLORIDE 10% ELIXIR 20 MEQ/15 ML UDCUP PO PRN (23:00)
[2020-07-29] MEDS ORDERED: POTASSIUM CHLORIDE 20 MEQ ERTAB PO PRN (23:00)
[2020-07-29] MEDS ORDERED: DEXTROSE 50%-WATER 50 ML DISP.SYRIN IV PRN (23:00)
[2020-07-29] MEDS ORDERED: POTASSIUM CHLORIDE 20MEQ/100ML 100 ML IV PRN ×2 (23:00)
[2020-07-29] MEDS ORDERED: INSULIN HUMULIN R 100 UNIT/ML 3ML ONE (23:36)
[2020-07-30 04:59] LABS: BASOPHILS % (AUTO) 0.4 % (0.0-5.0); EOSINOPHILS % (AUTO) 1.9 % (0.0-8.0); LYMPHOCYTES % (AUTO) 42.2 % (21.0-51.0); MEAN CORPUSCULAR HEMOGLOBIN 27.9 pg (27.0-33.0); MEAN CORPUSCULAR HGB CONC 33.1 g/dL (32.0-36.0); MEAN CORPUSCULAR VOLUME 84.3 fL (79-99); MONOCYTES % (AUTO) 7.4 % (3.0-13.0); NEUTROPHILS % (AUTO) 47.7 % (40.0-77.0); PLATELET COUNT (AUTO) 197 K/uL (130-400); RED BLOOD CELL COUNT(AUTO) 4.27 MIL/uL (4.50-6.20); RED CELL DISTRIBUTION WIDTH 13.9 % (11.0-15.5)
[2020-07-30] MEDS ORDERED: MORPHINE SULFATE 2 MG/ML 1ML SYG ONE ×5 (05:05→22:08)
[2020-07-30 05:38] LABS: ALBUMIN 2.6 g/dL (3.5-5.0); BILIRUBIN,TOTAL 0.3 mg/dL (0.2-1.0); CREATININE 0.8 mg/dL (0.5-1.5); POTASSIUM 4.4 mmol/L (3.5-5.1); TOTAL PROTEIN, SERUM 6.1 g/dL (6.0-8.3)
[2020-07-30] MEDS: PANTOPRAZOLE 40 MG/VIAL IVP SCH ×3 (07:30→21:00)
[2020-07-30] MEDS: INSULIN HUMULIN R 100 UNIT/ML 3ML SQ SCH ×4 (07:30→21:00)
[2020-07-30] MEDS ORDERED: NITROGLYCERIN 1GM/1 INCH PACKET TD SCH (07:30)
[2020-07-30] MEDS ORDERED: PANTOPRAZOLE 40 MG/VIAL IVP SCH (07:30)
[2020-07-30] MEDS ORDERED: METOPROLOL TARTRATE 25 MG TAB ONE ×2 (08:22→20:45)
[2020-07-30] MEDS ORDERED: FAMOTIDINE 20MG TAB 20 MG TAB ONE ×2 (08:22→20:45)
[2020-07-30] MEDS ORDERED: ASPIRIN 325 MG TABLET ONE (08:22)
[2020-07-30] MEDS ORDERED: ENOXAPARIN SODIUM 40 MG/0.4 ML SYRINGE SQ ONE (08:22)
[2020-07-30] MEDS ORDERED: INSULIN HUMULIN R 100 UNIT/ML 3ML ONE ×3 (08:23→20:46)
[2020-07-30] MEDS: ENOXAPARIN SODIUM 40 MG/0.4 ML SYRINGE SQ SCH (09:00)
[2020-07-30] MEDS: ASPIRIN 325MG EC TAB 325 MG TABLET.DR PO SCH (09:00)
[2020-07-30] MEDS: METOPROLOL TARTRATE 25 MG TAB PO SCH ×2 (09:00→21:00)
[2020-07-30] MEDS: NITROGLYCERIN 1GM/1 INCH PACKET TD SCH ×2 (13:00→19:00)
[2020-07-30] MEDS ORDERED: LACTATED RINGERS 1000ML 1,000 ML IV ONE (20:51)
[2020-07-30] MEDS ORDERED: NITROGLYCERIN 0.4 MG SL TAB SL ONE (21:11)
[2020-07-30 23:45] VITALS: BP 149/91
[2020-07-31] MEDS: NITROGLYCERIN 1GM/1 INCH PACKET TD SCH ×4 (01:00→19:56)
[2020-07-31] MEDS: MORPHINE SULFATE 2 MG/ML 1ML SYG IV PRN ×5 (02:13→19:45)
[2020-07-31 04:00] VITALS: BP 154/83
[2020-07-31 05:32] LABS: BASOPHILS % (AUTO) 0.3 % (0.0-5.0); EOSINOPHILS % (AUTO) 2.1 % (0.0-8.0); HEMATOCRIT 37.6 % (42-54); LYMPHOCYTES % (AUTO) 44.9 % (21.0-51.0); MEAN CORPUSCULAR HEMOGLOBIN 28.6 pg (27.0-33.0); MEAN CORPUSCULAR HGB CONC 33.5 g/dL (32.0-36.0); MEAN CORPUSCULAR VOLUME 85.5 fL (79-99); MONOCYTES % (AUTO) 9.1 % (3.0-13.0); NEUTROPHILS % (AUTO) 43.2 % (40.0-77.0); PLATELET COUNT (AUTO) 207 K/uL (130-400); RED CELL DISTRIBUTION WIDTH 13.8 % (11.0-15.5); WHITE BLOOD COUNT (AUTO) 7.8 K/uL (4.8-10.8)
[2020-07-31 06:00] LABS: ALBUMIN 2.8 g/dL (3.5-5.0); BILIRUBIN,TOTAL 0.2 mg/dL (0.2-1.0); CREATININE 0.9 mg/dL (0.5-1.5); POTASSIUM 4.3 mmol/L (3.5-5.1); TOTAL PROTEIN, SERUM 6.7 g/dL (6.0-8.3)
[2020-07-31] MEDS: INSULIN HUMULIN R 100 UNIT/ML 3ML SQ SCH ×4 (06:20→21:00)
[2020-07-31 07:30] VITALS: BP 127/81
[2020-07-31] MEDS: ASPIRIN 81MG TAB.CHEW PO SCH (10:52)
[2020-07-31] MEDS: METOPROLOL TARTRATE 25 MG TAB PO SCH ×2 (10:53→19:45)
[2020-07-31] MEDS: ISOSORBIDE MONO 60 MG TAB.SR PO SCH (10:53)
[2020-07-31] MEDS: PANTOPRAZOLE 40 MG/VIAL IVP SCH ×2 (10:53→19:45)
[2020-07-31] MEDS: ENOXAPARIN SODIUM 40 MG/0.4 ML SYRINGE SQ SCH (10:54)
[2020-07-31 11:00] VITALS: BP 145/85
[2020-07-31] MEDS: INSULIN GLARGINE 100 UNITS/ML 10 ML VIAL SQ SCH (11:15)
[2020-07-31] MEDS: HONEY 1 APPL/ML TUBE TP SCH (15:36)
[2020-07-31 16:00] VITALS: BP 123/74
[2020-07-31] MEDS: ATORVASTATIN CALCIUM 40 MG TABLET PO SCH (19:45)
[2020-07-31 20:00] VITALS: BP 119/85
[2020-08-01] MEDS: NITROGLYCERIN 1GM/1 INCH PACKET TD SCH ×4 (00:07→20:21)
[2020-08-01] MEDS: MORPHINE SULFATE 2 MG/ML 1ML SYG IV PRN ×2 (00:08→08:55)
[2020-08-01 00:13] VITALS: BP 132/79
[2020-08-01 04:37] VITALS: BP 134/78
[2020-08-01 05:07] LABS: BASOPHILS % (AUTO) 0.5 % (0.0-5.0); EOSINOPHILS % (AUTO) 2.2 % (0.0-8.0); HEMATOCRIT 36.2 % (42-54); LYMPHOCYTES % (AUTO) 45.7 % (21.0-51.0); MEAN CORPUSCULAR HEMOGLOBIN 28.4 pg (27.0-33.0); MEAN CORPUSCULAR HGB CONC 33.1 g/dL (32.0-36.0); MEAN CORPUSCULAR VOLUME 85.8 fL (79-99); MONOCYTES % (AUTO) 9.5 % (3.0-13.0); NEUTROPHILS % (AUTO) 41.9 % (40.0-77.0); PLATELET COUNT (AUTO) 200 K/uL (130-400); RED BLOOD CELL COUNT(AUTO) 4.22 MIL/uL (4.50-6.20); RED CELL DISTRIBUTION WIDTH 13.7 % (11.0-15.5); WHITE BLOOD COUNT (AUTO) 8.8 K/uL (4.8-10.8)
[2020-08-01 05:42] LABS: ALBUMIN 2.6 g/dL (3.5-5.0); BILIRUBIN,TOTAL 0.2 mg/dL (0.2-1.0); CREATININE 0.9 mg/dL (0.5-1.5); POTASSIUM 4.2 mmol/L (3.5-5.1); TOTAL PROTEIN, SERUM 6.2 g/dL (6.0-8.3)
[2020-08-01] MEDS: INSULIN HUMULIN R 100 UNIT/ML 3ML SQ SCH ×4 (06:17→20:26)
[2020-08-01 08:00] VITALS: BP 141/84
[2020-08-01] MEDS: ASPIRIN 81MG TAB.CHEW PO SCH (08:53)
[2020-08-01] MEDS: PANTOPRAZOLE 40 MG/VIAL IVP SCH ×2 (08:53→20:20)
[2020-08-01] MEDS: ENOXAPARIN SODIUM 40 MG/0.4 ML SYRINGE SQ SCH (08:54)
[2020-08-01] MEDS: ISOSORBIDE MONO 60 MG TAB.SR PO SCH (08:54)
[2020-08-01] MEDS: METOPROLOL TARTRATE 25 MG TAB PO SCH ×2 (08:54→20:20)
[2020-08-01] MEDS: HONEY 1 APPL/ML TUBE TP SCH (10:26)
[2020-08-01] MEDS: INSULIN GLARGINE 100 UNITS/ML 10 ML VIAL SQ SCH (10:26)
[2020-08-01 12:00] VITALS: BP 115/65
[2020-08-01 16:00] VITALS: BP 145/79
[2020-08-01 20:00] VITALS: BP 131/70
[2020-08-01] MEDS: ATORVASTATIN CALCIUM 40 MG TABLET PO SCH (20:20)
[2020-08-01 22:43] LABS: BASOPHILS % (AUTO) 0.5 % (0.0-5.0); EOSINOPHILS % (AUTO) 1.6 % (0.0-8.0); HEMATOCRIT 37.1 % (42-54); LYMPHOCYTES % (AUTO) 32.4 % (21.0-51.0); MEAN CORPUSCULAR HEMOGLOBIN 27.9 pg (27.0-33.0); MEAN CORPUSCULAR HGB CONC 32.3 g/dL (32.0-36.0); MEAN CORPUSCULAR VOLUME 86.3 fL (79-99); MONOCYTES % (AUTO) 9.5 % (3.0-13.0); NEUTROPHILS % (AUTO) 55.6 % (40.0-77.0); PLATELET COUNT (AUTO) 208 K/uL (130-400); RED CELL DISTRIBUTION WIDTH 13.6 % (11.0-15.5); WHITE BLOOD COUNT (AUTO) 8.3 K/uL (4.8-10.8)
[2020-08-02] VITALS: BP 110/52
[2020-08-02] MEDS: NITROGLYCERIN 1GM/1 INCH PACKET TD SCH ×4 (00:57→19:55)
[2020-08-02 04:20] VITALS: BP 124/69
[2020-08-02] MEDS: INSULIN HUMULIN R 100 UNIT/ML 3ML SQ SCH ×4 (05:49→19:56)
[2020-08-02 07:00] VITALS: BP 99/55
[2020-08-02] MEDS: INSULIN GLARGINE 100 UNITS/ML 10 ML VIAL SQ SCH (09:08)
[2020-08-02] MEDS: ENOXAPARIN SODIUM 40 MG/0.4 ML SYRINGE SQ SCH (09:13)
[2020-08-02] MEDS: ASPIRIN 81MG TAB.CHEW PO SCH (09:13)
[2020-08-02] MEDS: PANTOPRAZOLE 40 MG/VIAL IVP SCH ×2 (09:13→20:46)
[2020-08-02] MEDS: METOPROLOL TARTRATE 25 MG TAB PO SCH ×2 (09:14→19:56)
[2020-08-02] MEDS: HONEY 1 APPL/ML TUBE TP SCH (09:22)
[2020-08-02 11:15] VITALS: BP 140/73
[2020-08-02] MEDS ORDERED: GABAPENTIN 100 MG CAPSULE PO SCH (11:30)
[2020-08-02] MEDS ORDERED: HYDROCODONE/ACETAMINOPHEN 5/325 MG TAB PO PRN (11:30)
[2020-08-02] MEDS: ISOSORBIDE MONO 60 MG TAB.SR PO SCH (11:40)
[2020-08-02] MEDS: HYDROCODONE/ACETAMINOPHEN 5/325 MG TAB PO PRN ×2 (12:10→16:40)
[2020-08-02 16:00] VITALS: BP 152/90
[2020-08-02] MEDS: ATORVASTATIN CALCIUM 40 MG TABLET PO SCH (19:55)
[2020-08-02] MEDS: GABAPENTIN 100 MG CAPSULE PO SCH (19:56)
[2020-08-02 20:30] VITALS: BP 130/54
[2020-08-03 00:08] VITALS: BP 119/59
[2020-08-03] MEDS: NITROGLYCERIN 1GM/1 INCH PACKET TD SCH ×2 (00:48→06:11)
[2020-08-03 04:01] LABS: BASOPHILS % (AUTO) 0.5 % (0.0-5.0); EOSINOPHILS % (AUTO) 2.5 % (0.0-8.0); HEMATOCRIT 35.5 % (42-54); MEAN CORPUSCULAR HGB CONC 32.7 g/dL (32.0-36.0); MEAN CORPUSCULAR VOLUME 85.5 fL (79-99); MONOCYTES % (AUTO) 9.8 % (3.0-13.0); NEUTROPHILS % (AUTO) 38.8 % (40.0-77.0); PLATELET COUNT (AUTO) 204 K/uL (130-400); RED BLOOD CELL COUNT(AUTO) 4.15 MIL/uL (4.50-6.20); RED CELL DISTRIBUTION WIDTH 13.5 % (11.0-15.5); WHITE BLOOD COUNT (AUTO) 7.9 K/uL (4.8-10.8)
[2020-08-03 04:13] LABS: CREATININE 0.9 mg/dL (0.5-1.5); POTASSIUM 3.9 mmol/L (3.5-5.1)
[2020-08-03 05:35] VITALS: BP 108/66
[2020-08-03] MEDS: INSULIN HUMULIN R 100 UNIT/ML 3ML SQ SCH ×2 (06:12→11:51)
[2020-08-03 07:00] VITALS: BP 116/69
[2020-08-03] MEDS: ENOXAPARIN SODIUM 40 MG/0.4 ML SYRINGE SQ SCH (09:00)
[2020-08-03] MEDS: HONEY 1 APPL/ML TUBE TP SCH (09:00)
[2020-08-03] MEDS: PANTOPRAZOLE 40 MG/VIAL IVP SCH (09:00)
[2020-08-03] MEDS: INSULIN GLARGINE 100 UNITS/ML 10 ML VIAL SQ SCH (09:39)
[2020-08-03] MEDS: ISOSORBIDE MONO 60 MG TAB.SR PO SCH (10:19)
[2020-08-03] MEDS: ASPIRIN 81MG TAB.CHEW PO SCH (10:19)
[2020-08-03] MEDS: METOPROLOL TARTRATE 25 MG TAB PO SCH (10:20)
[2020-08-03] MEDS: GABAPENTIN 100 MG CAPSULE PO SCH (10:20)
[2020-08-03 11:00] VITALS: BP 111/74
== END 2020-08-03 12:28 | disposition home or self-care (01) | DRG 311 ==
LOC: EDH 16:21 → EDHIP 16:22 → OBSVTOIN 16:22 → 4CH 07-30 23:06
PROVIDERS: ADMIT Family Medicine; ATTEND Family Medicine
DX: I24.8 Other forms of acute ischemic heart disease (principal); E87.1 Hypo-osmolality and hyponatremia; D64.9 Anemia, unspecified; E11.9 Type 2 diabetes mellitus without complications; I10 Essential (primary) hypertension; E78.5 Hyperlipidemia, unspecified; I25.10 Atherosclerotic heart disease of native coronary artery without angina pectoris; E11.51 Type 2 diabetes mellitus with diabetic peripheral angiopathy without gangrene; E78.00 Pure hypercholesterolemia, unspecified; Z89.512 Acquired absence of left leg below knee; Z91.14 Patient's other noncompliance with medication regimen; Z83.3 Family history of diabetes mellitus
CPT/HCPCS: 36415; 71045; 80048; 80053; 80305; 81001; 82550; 82948; 83880; 84484; 85025; 85610; 85730; 93005; 97039; C9113; G0378; J1200; J1650; J1815; J3490; J7120